=== PATIENT | male | born 1930 | race Caucasian/White ===

== ENCOUNTER 2017-04-02 10:00 | Outpatient (RCR) ==
[2013-08-13 08:06] VITALS: BMI 32.5
--- NOTE | 2017-03-29 08:22 | RS.OPPTEV2 ---
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 Functional Limitations: Self Care, ADL's, Reaching, Pushing, Pulling, Lifting, Carrying, Standing, Ambulation, Community Access/Integration Current Subjective/complaints:: Patient reports he is still weak in his legs. States he uses a cane for safety. States he has had no falls since surgery, but states he does veer and has stumbled. States his pain has mostly resolved since having surgery. He received Home Health Physical Therapy following surgery. Reports fatigue with prolonged activity. States he mainly notices weakness and fatigue in his legs. Reports having tremors in both arms, which he states has been more noticable since surgery. States he is able to tolerate prolonged sitting such as riding in a car, but it wears him out. He is not wearing any type of back support. Reports he is sleeping well, without interruption of back pain. He denies radiating pain into the LE's. States he gets tingling in his feet at times, and this is decreased with elevating his legs. States he would like to walk without the cane. States he is unable to climb up into his tractor without help. States he wants to be able to get in his tractor and boyle hog. Medical History Medical History: Hypertension Medical History Comments:: OA, Depression, Anxiety Surgical History: Knee Replacement (bilateral), Cholecystectomy Surgical History Comments:: STENT placement over 10 years ago Smoking Status: Never smoker Hx Home Medications: Will bring list at next appointment. Reports taking Tylenol PRN. Takes Norvasc, recently taking off of some other BP meds. 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 Functional Outcome Measure Tinetti: 17 (17=39.3% impairment) - G Codes & Severity Modifier G Codes & Modifier: Mob current CJ. Mob goal CI Source of G Code score: Tinetti Assessment Observation - Observation Posture: Forward Head, Rounded Shoulders, Increased Thoracic Kyphosis Gait - Gait Pattern Gait Comments: Patient ambulates with a straight cane in the right hand. He exhibits decreased bilateral hip and knee flexion. He demonstrates minimal heelstrike and lacks full foot clearance bilaterally. Ambulation is independent. Patient put on treadmill for 1.5 mins @ .7 mph. Patient held onto both rails of treadmill and demonstrates lack of foot clearance and flatfoot hitting the floor instead of heelstrike. Patient is able to flex hips and knees to clear feet with instruction for a short time. - ROM Comments: Lumbar AROM is not assessed at this time due to proximity of surgery date. LE AROM is WFL's. - Strength Trunk Lateral Flexion: 4 Good Trunk Rotation: 4- Good- Comments: Bilateral UE strength is generally 4/5 throughout. Bilateral hip strength 4/5, with exception of IR/ER 4-/5. Bilateral knee strength 4/5. Bilateral ankles 4 to 4+/5. Palpation Comments:: Patient denies any tenderness to the lumbar spine or lumbar paraspinals. Demonstrates minimal to no muscle guarding of the lumbar paraspinals. Sensation - Sensation Comments: Patient reports intact sensation to light touch. Reports occasions of tingling in his feet. Balance - Sitting Balance Static Sitting Balance: Good Dynamic Sitting Balance: Good - Standing Balance Static Standing Balance: Good (-) Dynamic Standing Balance: Fair (+) Additional Comments: Additional Comments: SLR bilaterally to 45-50 degrees. Interventions - Exercise/Activities/Manual Therapy Exercises/Activities: No exercises given today. Encouraged Mr. 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 Explained to Mr. Vance that not picking up his feet increases the chance of falls. Manual Therapy: NA - Charges Total Direct Minutes: 50 mins Total Treatment Time: 50 mins Procedures billed for this date of service:: EVAL Medium Assessment Assessment: Patient presents to therapy 7 weeks s/p surgery to the lumbar spine. He reports good resolve of pain, but LE weakness and decreased tolerance for activities. He demonstrates weakness of his trunk and hips. Scores 17/28 on Tinetti Assessment, which puts him in the category of being at a high risk for falls. He is having to walk with a cane and is unable to perform all ADL's or climb into his tractor/combine without help. He demonstrates good potential to gain strength and safety to with skilled therapy to return to his prior level of function. Patient Education: Education of diagnosis, Body/Joint mechanics, Home Exercise Program, Home Safety, Activity Modification, Education of Plan of Care Rehab Potential: Good Short Term Goals Goal #1: Bilateral SLR to 50-55 degrees. Goal to be met by: 04/12/17 Goal #2: Trunk strength 4/5. Goal to be met by: 04/12/17 Goal #3: Bilateral hip strength 4 to 4+/5. Goal to be met by: 04/12/17 Goal #4: Pt to consistently clear both feet amb. short distances w/ cane. Goal to be met by: 04/12/17 City Driver Goals Goal #1: Pt knows HEP and to continue ex's to maintain functional level at D/C. Goal to be met by: 05/18/17 Goal #2: Score on Tinetti Assessment improved to less than 19% impairment Goal to be met by: 05/18/17 Goal #3: Pt will report being able to climb into tractor independently. Goal to be met by: 05/18/17 Goal #4: Pt will amb. with AAD community distances with good safety. Goal to be met by: 05/18/17 Plan - Treatment to be Provided Procedures: Therapeutic Exercises, Therapeutic Activity, Gait Training, Neuromuscular Rehab, Patient Education Modalities: No Modalities - Treatment Plan Frequency: 2-3 X week Duration: 6 weeks ORDER # VISITS AND/OR THROUGH DATE: 05/18/17 - Treatment Code (1) Generalized muscle weakness Code(s): M62.81 - MUSCLE WEAKNESS (GENERALIZED) Comments: M62.81 Trunk and LE general weakness (2) Gait abnormality Code(s): R26.9 - UNSPECIFIED ABNORMALITIES OF GAIT AND MOBILITY Comments: R26.9 (3) Hx of spinal surgery Code(s): Z98.89 - OTHER SPECIFIED POSTPROCEDURAL STATES * DO NOT USE * Comments: Z98.890
--- NOTE | 2017-03-29 11:12 | RS.OPPTDN ---
Subjective Date of Note: 03/29/17 Visit #: 2 Date of Evaluation: 03/26/17 Payer Source: MEDICARE Treatment Diagnosis: Lumbar and LE weakness, gait difficulty, s/p lumbar surgery Current Subjective/complaints:: Patient reports the back is not hurting today.He reports his legs tire out easily. Pain Assessment - Pain Description Current Pain Intensity: 0 Interventions - Exercise/Activities/Manual Therapy Exercises/Activities: 45 mins. total ,3/10 -15 reps. each exercise,including ankle pumps with green theraband,then 2.5 # resistance for SAQ,SLR heelslides .Isometric hip abd /adduction. Total minutes of Exercise: 45 Manual Therapy: NA Total minutes of Manual Therapy: 0 - Charges Total Direct Minutes: 45 Total Treatment Time: 45 Procedures billed for this date of service:: ex 3 Assessment: Patient has good return demo of exercises,attentive and motivated.He understands to focus on ankle dorsiflexors and hip flexors to improve foot clearance and step lenght during ambulation. Patient Education: Education of diagnosis, Body/Joint mechanics, Home Exercise Program, Home Safety, Activity Modification, Education of Plan of Care Short Term Goals Goal #1: Bilateral SLR to 50-55 degrees. Goal to be met by: 04/12/17 Progress towards Goal:: Progressing Goal #2: Trunk strength 4/5. Goal to be met by: 04/12/17 Goal #3: Bilateral hip strength 4 to 4+/5. Goal to be met by: 04/12/17 Progress towards Goal:: Progressing Goal #4: Pt to consistently clear both feet amb. short distances w/ cane. 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 Goal to be met by: 05/18/17 Progress towards goal: Progressing Goal #2: Score on Tinetti Assessment improved to less than 19% impairment Goal to be met by: 05/18/17 Goal #3: Pt will report being able to climb into tractor independently. Goal to be met by: 05/18/17 Goal #4: Pt will amb. with AAD community distances with good safety. Goal to be met by: 05/18/17 Plan PLAN OF CARE EXPIRES ON:: 05/18/17 ORDER # VISITS AND/OR THROUGH DATE: 05/18/17 PLAN: Continue Plan of Care
--- NOTE | 2017-03-31 11:16 | RS.OPPTDN ---
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 Pain Assessment - Pain Description Current Pain Intensity: 0 Interventions - Exercise/Activities/Manual Therapy Exercises/Activities: 50 mins. total ,3/15 reps. beginning on leg press ,45# x 1 set,then 3 sets @ 60 #,1 set @ 75#.Calf raises on foot plate of leg press @ 45 #,x 20 reps.Supine alternating hip flexion with 2.5 #,3/15 reps.Hip abd / adduction with green theraband ,3/10 reps.Discussed HEP of marching in place with high steps to 90 degrees hip flexion,then mini-squats. Total minutes of Exercise: 50 Manual Therapy: NA Total minutes of Manual Therapy: 0 HOME EXERCISE PROGRAM: Marching in place,mini-squats as tolerated ,supine LE AROM in all directions. - Charges Total Direct Minutes: 50 Total Treatment Time: 50 Procedures billed for this date of service:: ex 3 Assessment: Patient tolerates the exercises well,reports slight discomfort in the R lumbar/hip with alternating hip flexion ,but no sharp pain present.He does have improved foot clearance today ,ambuates with cane for longer distances and to assist on uneven terrain. Patient Education: Education of diagnosis, Body/Joint mechanics, Home Exercise Program, Home Safety, Activity Modification, Education of Plan of Care Patient demonstrates compliance with HEP?: Yes Short Term Goals Goal #1: Bilateral SLR to 50-55 degrees. Goal to be met by: 04/12/17 Progress towards Goal:: Progressing Goal #2: Trunk strength 4/5. Goal to be met by: 04/12/17 Progress towards Goal:: Progressing Goal #3: Bilateral hip strength 4 to 4+/5. Goal to be met by: 04/12/17 Progress towards Goal:: Progressing Goal #4: Pt to consistently clear both feet amb. short distances w/ cane. Goal to be met by: 04/12/17 Progress towards Goal:: Progressing Soda Fountain Clerk Goals Goal #1: Pt knows HEP and to continue ex's to maintain functional level at D/C. Goal to be met by: 05/18/17 Progress towards goal: Progressing Goal #2: Score on Tinetti Assessment improved to less than 19% impairment Goal to be met by: 05/18/17 Goal #3: Pt will report being able to climb into tractor independently. Goal to be met by: 05/18/17 Progress towards goal: Progressing Comments: climbed into combine yesterday Goal #4: Pt will amb. with AAD community distances with good safety. Goal to be met by: 05/18/17 Progress towards goal: Progressing Plan PLAN OF CARE EXPIRES ON:: 05/18/17 ORDER # VISITS AND/OR THROUGH DATE: 05/18/17 PLAN: Continue Plan of Care
--- NOTE | 2017-04-02 11:03 | RS.OPPTDN ---
Subjective Date of Note: 04/02/17 Visit #: 4 Date of Evaluation: 03/26/17 Payer Source: MEDICARE Treatment Diagnosis: Lumbar and LE weakness, gait difficulty, s/p lumbar surgery Current Subjective/complaints:: Patient feels the thwerapy is helping.His has noticed that he stands more upright while walking. Pain Assessment - Pain Description Current Pain Intensity: 0 Interventions - Exercise/Activities/Manual Therapy Exercises/Activities: 50 mins. total ,3/15 reps. each exercise,beginning with ankle pumps using green t-band,then 4 # resistance doing SAQ,heelslides, alternate hip flexion,hip abd/adduction.SLR's without resistance,then standing marching in place to 90 degrees hip flexion bilaterally. Total minutes of Exercise: 50 Manual Therapy: NA Total minutes of Manual Therapy: 0 HOME EXERCISE PROGRAM: Marching in place,mini-squats as tolerated ,supine LE AROM in all directions. - Charges Total Direct Minutes: 50 Total Treatment Time: 50 Procedures billed for this date of service:: ex 3 Assessment: Patient progressing well.He has improved awareness of his posture and gait pattern.He reports the legs feel more flexible and stronger.He reports walking more in the home with out the cane. Patient Education: Education of diagnosis, Body/Joint mechanics, Home Exercise Program, Home Safety, Activity Modification, Education of Plan of Care Patient demonstrates compliance with HEP?: Yes Short Term Goals Goal #1: Bilateral SLR to 50-55 degrees. Goal to be met by: 04/12/17 Progress towards Goal:: Met Goal #2: Trunk strength 4/5. Goal to be met by: 04/12/17 Progress towards Goal:: Progressing Goal #3: Bilateral hip strength 4 to 4+/5. Goal to be met by: 04/12/17 Progress towards Goal:: Progressing Goal #4: Pt to consistently clear both feet amb. short distances w/ cane. Goal to be met by: 04/12/17 Progress towards Goal:: Progressing Alf Goals Goal #1: Pt knows HEP and to continue ex's to maintain functional level at D/C. Goal to be met by: 05/18/17 Progress towards goal: Progressing Goal #2: Score on Tinetti Assessment improved to less than 19% impairment Goal to be met by: 05/18/17 Goal #3: Pt will report being able to climb into tractor independently. Goal to be met by: 05/18/17 Progress towards goal: Progressing Goal #4: Pt will amb. with AAD community distances with good safety. Goal to be met by: 05/18/17 Progress towards goal: Progressing Plan PLAN OF CARE EXPIRES ON:: 05/18/17 ORDER # VISITS AND/OR THROUGH DATE: 05/18/17 PLAN: Continue Plan of Care
== END 2017-04-03 ==
PROVIDERS: ATTEND Nurse Practitioner
DX: M48.06 Spinal stenosis, lumbar region (principal); R53.1 Weakness